=== PATIENT | female | born 1975 | race African-American/Black ===

== ENCOUNTER 2018-04-26 01:27 | Observation (INO) ==
[2018-04-26] MEDS ORDERED: KETOROLAC 10 MG TABLET PO PRN (03:42)
[2018-04-26] MEDS ORDERED: ACETAMINOPHEN 325 MG TABLET PO PRN (03:42)
[2018-04-26] MEDS ORDERED: ONDANSETRON 4 MG/2 ML VIAL IV PRN (03:42)
[2018-04-26] MEDS ORDERED: NITROGLYCERIN SL 0.4 MG TABLET SL PRN (03:47)
[2018-04-26 04:33] LABS: Basophils % 0.4 % (0.0-0.8); Eosinophils # 0.2 10*3/uL (0.0-0.87); Eosinophils % 1.9 % (0.00-10.9); Hematocrit 32.2 VOL% (35.7-47.0); Hemoglobin 10.6 GM/DL (12.0-16.0); Immature Granulocytes % 0.2 %; Immature Granulocytes Absolute 0.02 #; Lymphocytes % 35.7 % (21.3-54.2); Mean Corpuscular HGB Conc 32.9 GM/DL (32-36); Mean Corpuscular Hemoglobin 28 PG (27-34); Mean Platelet Volume 9.8 FL (9.6-12.0); Monocytes # 0.7 10*3/uL (0.11-0.8); Monocytes % 8.4 % (1.7-12.7); Neutrophils # 4.4 10*3/uL (1.4-7.4); Neutrophils % 53.4 % (38.7-73.9); Platelet Count 326 T/CUMM (130-400); Red Blood Count 3.79 MC/CUMM (3.8-5.5); Red Cell Distribution Width 13.6 % (9.3-17.3); White Blood Count 8.3 T/CUMM (4-12)
[2018-04-26 04:57] LABS: Osmolality,Calculated 281.1 MOS/KG (273-304); Potassium 3.1 MMOL/L (3.5-5.1); Total Protein 6.8 G/DL (6.4-8.3)
[2018-04-26 04:58] LABS: Risk Ratio 3.49; VLDL CHOLESTEROL 12.6 MG/DL
[2018-04-26 05:15] LABS: Troponin I < 0.015 NG/ML (0.00-0.045)
[2018-04-26] MEDS: ENOXAPARIN 40 MG/0.4 ML SYRINGE SUBCUT SCH (09:10)
[2018-04-26] MEDS: DOCUSATE SODIUM 100 MG CAPSULE PO SCH ×2 (09:10→22:04)
[2018-04-26] MEDS: PANTOPRAZOLE 40 MG TABLET PO SCH (09:10)
[2018-04-26] MEDS: POTASSIUM CHLORIDE 20 MEQ TABLET PO SCH (22:04)
[2018-04-26] MEDS: MAGNESIUM OXIDE 400 MG TABLET PO SCH (22:05)
[2018-04-27 04:36] LABS: Calcium 8.1 MG/DL (8.5-10.1); Osmolality,Calculated 281.1 MOS/KG (273-304); Potassium 3.1 MMOL/L (3.5-5.1)
[2018-04-27] MEDS ORDERED: NEBIVOLOL 5 MG TABLET PO SCH (09:00)
[2018-04-27] MEDS: MAGNESIUM OXIDE 400 MG TABLET PO SCH (10:08)
[2018-04-27] MEDS: PANTOPRAZOLE 40 MG TABLET PO SCH (10:08)
[2018-04-27] MEDS: POTASSIUM CHLORIDE 20 MEQ TABLET PO SCH (10:09)
[2018-04-27] MEDS: ENOXAPARIN 40 MG/0.4 ML SYRINGE SUBCUT SCH (10:09)
[2018-04-27] MEDS: DOCUSATE SODIUM 100 MG CAPSULE PO SCH (10:09)
[2018-04-27] MEDS: POTASSIUM CHLORIDE 20 MEQ/15 ML UDCUP PO SCH ×2 (10:48→12:39)
[2018-04-27 12:39] VITALS: BP 126/77
== END 2018-04-27 14:04 | disposition home or self-care (01) ==
LOC: N.TELES
PROVIDERS: ADMIT Family Medicine; ATTEND Family Medicine